=== PATIENT | female | born 1970 | race Two or more races ===

== ENCOUNTER 2016-04-11 07:10 | Outpatient (CLI) | payer SELFPAY | END 2016-04-11 07:11 | disposition home or self-care (01) | DX: E03.9 Hypothyroidism, unspecified (principal) ==

== ENCOUNTER 2016-10-20 08:24 | Outpatient (CLI) | payer OTHER ==
--- NOTE | 2016-10-20 16:27 | MRI Report ---
EXAM: RIGHT KNEE MRI WITHOUT CONTRAST EXAM DATE: 10/20/2016 09:24 AM. CLINICAL HISTORY: Right knee medial collateral ligament sprain. COMPARISON: None. TECHNIQUE: Multiplanar, multisequence T1-weighted and fluid-sensitive sequences of the knee without c ontrast. Other: None. FINDINGS: Bones: No fractures. Periarticular marrow edema is in the inferior portion of the lateral femoral con dyle. There is periarticular marrow and cyst formation of the lateral tibial plateau as well. Minimal tricompartment osteophytes are present. Articular Cartilage: The patellofemoral articular cartilage is intact. There is mild thinning of the medial compartment articular cartilage. Mild thinning and surface irregularity is seen in the lateral compartment articular cartilage. Medial Meniscus: The medial meniscus is intact. Lateral Meniscus: The anterior horn of the lateral meniscus demonstrates a longitudinal tear (series 601, image 20). Cruciate Ligaments: The anterior and posterior cruciate ligaments are intact. Collateral Ligaments: The medial collateral and lateral collateral ligamentous structures are intact. Tendons: The quadriceps, patellar, semimembranosus, and popliteus tendons are unremarkable. Musculature: No edema or fatty atrophy. Other: No effusion. No popliteal cyst. No loose bodies. The medial and lateral retinacula are intact . Prepatellar subcutaneous edema is present. IMPRESSION: 1. Minimal osteoarthritis. 2. Horizontal tear in anterior horn of lateral meniscus. [facility] MUSCULOSKELETAL [facility]IOLOGY SECTION Referring Provider Line: [phone] SITE ID: [id number]
== END 2016-10-20 08:25 | disposition home or self-care (01) ==
LOC: DI 08:24
PROVIDERS: ATTEND Orthopaedic Surgery
DX: S83.281A Other tear of lateral meniscus, current injury, right knee, initial encounter (principal); M17.11 Unilateral primary osteoarthritis, right knee

== ENCOUNTER 2016-11-20 11:50 | Outpatient (CLI) | payer OTHER | END 2016-11-20 11:51 | disposition critical access hospital (66) | LOC: EMS 11:50 | PROVIDERS: ATTEND Surgery | DX: R51 Headache (principal); W01.198A Fall on same level from slipping, tripping and stumbling with subsequent striking against other object, initial encounter; Y93.89 Activity, other specified; Y92.89 Other specified places as the place of occurrence of the external cause; Y99.0 Civilian activity done for income or pay | CPT/HCPCS: A0425; A0429 ==

== ENCOUNTER 2016-11-20 12:15 | Emergency (ER) | payer OTHER ==
--- NOTE | 2016-11-20 14:18 | CT Preliminary Report ---
Exam: CT Chest W/O IMPRESSION: No evidence of acute traumatic injury to the chest. [facility] SITE ID: [id number]
--- NOTE | 2016-11-20 14:20 | CT Report ---
EXAM: CT CHEST EXAM DATE: 11/20/2016 01:46 PM. CLINICAL HISTORY: Fall posterior contusion. COMPARISONS: None. TECHNIQUE: Routine helical CT imaging was performed through the chest. IV contrast: None. Reconstruct ions: Coronal and sagittal. In accordance with CT protocol optimization, one or more of the following dose reduction techniques w ere utilized for this exam: automated exposure control, adjustment of mA and/or KV based on patient s ize, or use of iterative reconstructive technique. FINDINGS: Lungs/Pleura: No nodules, bronchial thickening, consolidation, or edema. Pulmonary vasculature is nor mal. No pericardial or pleural effusion. No pneumothorax. Mediastinum: Normal. No adenopathy or masses. The heart and great vessels are normal. Bones: Unremarkable. Visualized Abdomen: No acute abnormalities are seen. There is hepatic steatosis. There is colonic div erticulosis. Other: None. IMPRESSION: No evidence of acute traumatic injury to the chest. [facility] Referring Provider Line: [phone] SITE ID: [id number]
--- NOTE | 2016-11-20 14:32 | CT Preliminary Report ---
Exam: CT Head W/O IMPRESSION: 1. No definite acute infarct, intracranial hemorrhage, mass, or hydrocephalus. 2. Moderate-sized left frontal scalp hematoma with no definite underlying calvarial fracture. [facility] SITE ID: [id number]
--- NOTE | 2016-11-20 14:34 | CT Report ---
EXAM: CT HEAD EXAM DATE: 11/20/2016 01:46 PM. CLINICAL HISTORY: 46-year-old with head strike presenting with headache and neck pain COMPARISON: None. TECHNIQUE: Multiaxial CT images were obtained from the foramen magnum to the vertex. IV contrast: Non e. Reformats: Coronal. In accordance with CT protocol optimization, one or more of the following dose reduction techniques w ere utilized for this exam: automated exposure control, adjustment of mA and/or KV based on patient s ize, or use of iterative reconstructive technique. FINDINGS: Parenchyma: No intraparenchymal hemorrhage. No evidence of mass, midline shift, or CT findings of inf arction. Varela-white differentiation is distinct. Extraaxial Spaces: Normal for age. No subdural or epidural collections identified. Ventricles: Normal in size and position. Sinuses: Imaged paranasal sinuses, orbits, and mastoids show no significant abnormality. Bones: No evidence of fracture or calvarial defect. Other: Moderate left frontal scalp hematoma.. IMPRESSION: 1. No definite acute infarct, intracranial hemorrhage, mass, or hydrocephalus. 2. Moderate-sized left frontal scalp hematoma with no definite underlying calvarial fracture. [facility] Referring Provider Line: [phone] SITE ID: [id number]
--- NOTE | 2016-11-20 14:36 | CT Preliminary Report ---
Exam: CT Cervical Spine W/O IMPRESSION: 1. Patient is imaged within a c-collar. Straightening of the normal cervical lordosis. 2. No definite acute fracture or traumatic subluxation. [facility] SITE ID: [id number]
--- NOTE | 2016-11-20 14:38 | CT Report ---
EXAM: CT CERVICAL SPINE WITHOUT CONTRAST DATE: 11/20/2016 01:45 PM HISTORY: 46-year-old with fall and head strike presenting with neck pain and headache. COMPARISONS: None. TECHNIQUE: Thin-section axial images were acquired of the cervical spine without contrast. Post-proce ssing: Coronal and sagittal reformats. Other: None. In accordance with CT protocol optimization, one or more of the following dose reduction techniques w ere utilized for this exam: automated exposure control, adjustment of mA and/or KV based on patient s ize, or use of iterative reconstructive technique. FINDINGS: Alignment: Straightening of normal cervical lordosis. No definite spondylolisthesis or scoliotic curv ature. Bones: No fracture or bone lesion. Interspace Levels/Facets: C1-C2: Unremarkable. C2-C3: Unremarkable. C3-C4: Unremarkable. C4-C5: Unremarkable. C5-C6: Unremarkable. C6-C7: Unremarkable. C7-T1: Unremarkable. Musculature: Normal. No fatty atrophy. Other: The paravertebral and prevertebral soft tissues are normal. The lung apices are clear. IMPRESSION: 1. Patient is imaged within a c-collar. Straightening of the normal cervical lordosis. 2. No definite acute fracture or traumatic subluxation. [facility] Referring Provider Line: [phone] SITE ID: [id number]
--- NOTE | 2016-11-20 15:33 | ED Physician Documentation ---
PD HPI Fall - Stated complaint Stated Complaint: Fall - Chief complaint Chief Complaint: General - History obtained from History obtained from: Patient - History of Present Illness Mechanism of injury: Slipped Fall distance: Standing position Where injury occurred: Work Timing - onset: Today Injury(ies) location: Head, Back, Left Uppper Extremity, Left Lower Extremity ( knee) Quality of pain: Pain, Throbbing Associated symptoms: Neck pain, Dyspnea. No: LOC, AMS, Amnesia, Weakness, Paresthesias Symptoms improve with: Rest Worsens with: Movement, Palpation Contributing factors: No: Anticoagulated Similar symptoms before: Has not had sx before Recently seen: Not recently seen - Additional information Additional information: 46-year-old female was at work today with a mop bucket and the mop bucket scooted away on the floor she went to pick it up and she slipped on water and fell forward hitting her face into the wall and arching her back backwards. She has a lot of pain in her left upper back and she has pain whenever she moves her arms. She has pain when she takes a deep breath and she has some pain in her neck. She does not have any numbness or tingling. She has some pain in her left knee as well. She is able to bear weight.History is taken with the assistance of a [employer] retailer sales consultant on [employer]. Review of Systems Constitutional: denies: Fever Eyes: denies: Decreased vision Ears: denies: Ear pain Nose: denies: Congestion Throat: denies: Sore throat Cardiac: denies: Chest pain / pressure, Palpitations Respiratory: reports: Dyspnea. denies: Cough GI: denies: Abdominal Pain, Nausea : denies: Dysuria, Frequency Skin: denies: Rash Musculoskeletal: reports: Neck pain, Back pain. denies: Extremity pain, Joint pain Neurologic: denies: Generalized weakness, Focal weakness, Numbness PD PAST MEDICAL HISTORY - Past Medical History Endocrine/Autoimmune: HyPOthyroidism - Past Surgical History Past Surgical History: Yes - Present Medications Home Medications: Ambulatory Orders Medication Instructions Recorded Confirmed Ferrous Sulfate 2 tab PO DAILY 10/07/14 11/20/16 Levothyroxine Sodium 50 mcg PO DAILY 10/07/14 11/20/16 Ibuprofen 600 mg PO TID #20 tablet 10/08/14 11/20/16 HYDROcod/ACETAM 5/325 [[place] 5/325] 1 - 2 ea PO Q6H PRN #15 tablet 11/20/16 - Allergies Allergies/Adverse Reactions: Allergies Allergy/AdvReac Type Severity Reaction Status Date / Time No Known Drug Allergies Allergy Verified 11/20/16 12:40 - Social History Does the pt smoke?: Yes Smoking Status: Current every day smoker Does the pt drink ETOH?: No Does the pt have substance abuse?: No - Immunizations Immunizations are current?: Yes - POLST Patient has POLST: No PD ED PE NORMAL - Vitals Vital signs reviewed: Yes (hypertensive) - General General: Well developed/nourished, Other (The patient is in a C-collar on a back board and she is wet over her front. She appears to be in pain . ) - HEENT HEENT: PERRL, EOMI, Other (There is a hematoma to the left forehead. ) - Neck Neck: Supple, no meningeal sign, Other (There is some midline point tenderness to the mid cervical spine. ) - Cardiac Cardiac: RRR, No murmur - Respiratory Respiratory: No respiratory distress, Clear bilaterally, Other (There is pain to palpation of the left posterior chest wall above the scapula. There is referred pain to this area with movement of the shoulders. ) - Abdomen Abdomen: Soft, Non tender - Back Back: No CVA TTP, No spinal TTP - Derm Derm: Normal color, Warm and dry, No rash - Extremities Extremities: No deformity, No edema, Other (There is abrasion to both knees and the left is worse than the right. The ligaments are stable ) - Neuro Neuro: No motor deficit, No sensory deficit - Psych Psych: Normal mood, Normal affect Results - Vitals Vitals: Vital Signs - 24 hr 11/20/16 11/20/16 12:27 14:20 Temperature 37.2 C 36.8 C Heart Rate 67 66 Respiratory 24 18 Rate Blood Pressure 150/76 H 126/78 O2 Saturation 98 98 Oxygen O2 Source Room air - Rads (name of study) CT head without Radiology: Prelim report reviewed (Impression: 1. No definite acute infarct, intracranial hemorrhage, mass, or hydrocephalus.2. Moderate-sized left frontal scalp hematoma with no definite acute underlying calvarial fracture.), EMP read indepedently, See rad report CT cervical spine without Radiology: Prelim report reviewed (Impression: 1. The patient is imaged within a c-collar. Straightening of the normal cervical lordosis.2. No definite acute fracture or traumatic subluxation.), EMP read indepedently, See rad report CT chest without Radiology: Prelim report reviewed (Impression: No evidence of acute traumatic injury to the chest.), EMP read indepedently, See rad report PD MEDICAL DECISION MAKING - ED course Complexity details: reviewed old records, reviewed results, re-evaluated patient , considered differential, d/w patient ED course: 46-year-old female with a slip on water at work with a head contusion cervicals strain and a strain of the thoracic chest wall posteriorly. She is in significant pain on arrival to the emergency department she is eventually administered Toradol with some improvement. Departure - Departure Disposition: 01 Home, Self Care Clinical Impression: Closed head injury Qualifiers: Encounter type: initial encounter Qualified Code(s): S09.90XA - Unspecified injury of head, initial encounter Chest wall muscle strain Qualifiers: Encounter type: initial encounter Qualified Code(s): S29.011A - Strain of muscle and tendon of front wall of thorax, initial encounter Cervical strain, acute Qualifiers: Encounter type: initial encounter Qualified Code(s): S16.1XXA - Strain of muscle, fascia and tendon at neck level, initial encounter Condition: Stable Instructions: ED Head Injury Closed, ED Sprain Knee, ED Sprain Strain Neck, ED Sprain Thoracic Spine Follow-Up: [facility] [Provider Group] Prescriptions: HYDROcod/ACETAM 5/325 [[place] 5/325] 1 - 2 ea PO Q6H PRN #15 tablet PRN Reason: Pain Print Language: Bulgarian Forms: Activity restrictions
[2016-11-20] MEDS ORDERED: KETOROLAC 60 MG/2 ML VIAL IM STA (15:54)
[2016-11-20] MEDS ORDERED: KETOROLAC 60 MG/2 ML VIAL ONE (16:02)
[2016-11-20 16:58] VITALS: BP 138/82
== END 2016-11-20 16:55 | disposition home or self-care (01) ==
LOC: EDUNIT# → ED 12:15
DX: S09.90XA Unspecified injury of head, initial encounter (principal); S29.011A Strain of muscle and tendon of front wall of thorax, initial encounter; S16.1XXA Strain of muscle, fascia and tendon at neck level, initial encounter; S00.93XA Contusion of unspecified part of head, initial encounter; W01.0XXA Fall on same level from slipping, tripping and stumbling without subsequent striking against object, initial encounter; Y93.89 Activity, other specified; Y99.0 Civilian activity done for income or pay; F17.200 Nicotine dependence, unspecified, uncomplicated
CPT/HCPCS: 1040M; 70450; 71250; 72125; 96372; 99283; 99284

== ENCOUNTER → 2017-02-18 | Outpatient (CLI) | payer SELFPAY ==
[2017-02-18 12:23] LABS: BUN - BLOOD UREA NITROGEN 6 mg/dL (6-20); CALCIUM 8.3 mg/dL (8.5-10.3); CARBON DIOXIDE - CO2 21 mmol/L (21-32); CHLORIDE 105 mmol/L (101-111); CREATININE 0.3 mg/dL (0.4-1.0); GFR - MDRD 239 (>89); GLUCOSE 163 mg/dL (70-100); POTASSIUM 3.7 mmol/L (3.5-5.0); SODIUM 136 mmol/L (135-145)
[2017-02-18 12:25] LABS: BASOPHILS % (AUTO) 0.4 %; EOSINOPHILS # (AUTO) 0.3 10^3/uL (0.0-0.7); EOSINOPHILS % (AUTO) 3.6 %; LYMPHOCYTES # (AUTO) 2.4 10^3/uL (1.5-3.5); LYMPHOCYTES % (AUTO) 28.5 %; MEAN CORPUSCULAR HGB CONC 34.3 g/dL (32.0-36.0); MEAN CORPUSCULAR VOLUME 84.6 fL (81.0-99.0); MEAN PLATELET VOLUME 9.4 fL (7.9-10.8); MONOCYTES # (AUTO) 0.6 10^3/uL (0.0-1.0); MONOCYTES % (AUTO) 7.4 %; NEUTROPHILS % (AUTO) 60.1 %; NUCLEATED RED BLOOD CELLS AUTO 0.1 /100WBC; RED BLOOD COUNT 4.49 10^6/uL (4.20-5.40); RED CELL DISTRIBUTION WIDTH 13.7 % (12.0-15.0); UNCORRECTED WHITE BLOOD COUNT 8.4 x10^3/uL; WHITE BLOOD COUNT 8.4 x10^3/uL (4.8-10.8)
== END ==
LOC: LAB.N 08:00
PROVIDERS: ATTEND Physician Assistant Medical
DX: N92.0 Excessive and frequent menstruation with regular cycle (principal); E03.9 Hypothyroidism, unspecified; D64.9 Anemia, unspecified
CPT/HCPCS: 36415; 80048; 84443; 85025

== ENCOUNTER 2017-03-18 14:23 | Outpatient (CLI) | payer SELFPAY ==
[2017-03-18 19:17] LABS: HEMOGLOBIN A1C 0.84 g/dL
== END 2017-03-18 14:24 | disposition home or self-care (01) ==
LOC: LAB.N 14:23
PROVIDERS: ATTEND Physician Assistant Medical
DX: R73.9 Hyperglycemia, unspecified (principal)
CPT/HCPCS: 36415; 83036

== ENCOUNTER 2017-08-27 08:00 | Outpatient (CLI) | payer SELFPAY ==
[2017-08-27 19:18] LABS: HB2 TOTAL 16.2 g/dL; HEMOGLOBIN A1C 0.9 g/dL; HEMOGLOBIN A1C % 7.2 % (4.6-6.2)
== END 2017-08-27 08:01 | disposition home or self-care (01) ==
LOC: LAB.N 08:00
PROVIDERS: ATTEND Nurse Practitioner Gerontology
DX: E11.9 Type 2 diabetes mellitus without complications (principal)
CPT/HCPCS: 36415; 83036

== ENCOUNTER 2017-12-28 08:00 | Outpatient (CLI) | payer SELFPAY ==
[2017-12-28 19:43] LABS: HB2 TOTAL 14.5 g/dL; HEMOGLOBIN A1C % 8.5 % (4.6-6.2)
== END 2017-12-28 08:01 | disposition home or self-care (01) ==
LOC: LAB.N 08:00
PROVIDERS: ATTEND Nurse Practitioner Gerontology
DX: E11.9 Type 2 diabetes mellitus without complications (principal)
CPT/HCPCS: 36415; 83036

== ENCOUNTER 2018-04-16 11:42 | Outpatient (CLI) | payer SELFPAY ==
[2018-04-16 19:45] LABS: HB2 TOTAL 13.1 g/dL; HEMOGLOBIN A1C 0.7 g/dL
== END 2018-04-16 23:59 | disposition home or self-care (01) ==
LOC: LAB.N 11:42
PROVIDERS: ATTEND Physician Assistant Medical
DX: E11.9 Type 2 diabetes mellitus without complications (principal)
CPT/HCPCS: 36415; 83036

== ENCOUNTER 2018-07-16 08:00 | Outpatient (CLI) | payer SELFPAY ==
[2018-07-16 14:04] LABS: HB2 TOTAL 14.4 g/dL; HEMOGLOBIN A1C 0.81 g/dL; HEMOGLOBIN A1C % 7.3 % (4.6-6.2)
== END 2018-07-16 23:59 ==
LOC: LAB.N 08:00
PROVIDERS: ATTEND Physician Assistant Medical
DX: E11.9 Type 2 diabetes mellitus without complications (principal)
CPT/HCPCS: 36415; 83036

== ENCOUNTER 2018-10-15 09:50 | Outpatient (CLI) | payer SELFPAY ==
[2018-10-15 13:12] LABS: HB2 TOTAL 14.2 g/dL; HEMOGLOBIN A1C 0.64 g/dL; HEMOGLOBIN A1C % 6.3 % (4.6-6.2)
== END 2018-10-15 23:59 | disposition home or self-care (01) ==
LOC: LAB.N 09:50
PROVIDERS: ATTEND Nurse Practitioner Gerontology
DX: E11.9 Type 2 diabetes mellitus without complications (principal)
CPT/HCPCS: 36415; 83036

== ENCOUNTER 2019-01-14 11:59 | Outpatient (CLI) | payer SELFPAY ==
[2019-01-14 18:40] LABS: BASOPHILS # (AUTO) 0.1 10^3/uL (0.0-0.1); BASOPHILS % (AUTO) 0.8 %; EOSINOPHILS # (AUTO) 0.4 10^3/uL (0.0-0.7); HGB - HEMOGLOBIN 12.8 g/dL (12.0-16.0); LYMPHOCYTES # (AUTO) 2.2 10^3/uL (1.5-3.5); LYMPHOCYTES % (AUTO) 25.6 %; MEAN CORPUSCULAR HEMOGLOBIN 25.5 pg (27.0-31.0); MEAN CORPUSCULAR HGB CONC 30.3 g/dL (32.0-36.0); MEAN CORPUSCULAR VOLUME 84.2 fL (81.0-99.0); MEAN PLATELET VOLUME 10.8 fL (7.9-10.8); MONOCYTES # (AUTO) 0.6 10^3/uL (0.0-1.0); MONOCYTES % (AUTO) 6.9 %; NEUTROPHILS # (AUTO) 5.4 10^3/uL (1.5-6.6); NEUTROPHILS % (AUTO) 62.1 %; PLT - PLATELET COUNT 286 10^3/uL (130-450); RED BLOOD COUNT 5.01 10^6/uL (4.20-5.40); RED CELL DISTRIBUTION WIDTH 16.5 % (12.0-15.0); WHITE BLOOD COUNT 8.7 x10^3/uL (4.8-10.8)
[2019-01-14 19:05] LABS: HEMOGLOBIN A1C 0.55 g/dL; HEMOGLOBIN A1C % 5.7 % (4.6-6.2)
[2019-01-14 19:08] LABS: BUN - BLOOD UREA NITROGEN 7 mg/dL (6-20); CALCIUM 8.5 mg/dL (8.5-10.3); CARBON DIOXIDE - CO2 26 mmol/L (21-32); CHLORIDE 108 mmol/L (101-111); CHOL/HDL RATIO 3.6 (<4.4); CHOLESTEROL 140 mg/dL; CREATININE 0.4 mg/dL (0.4-1.0); GFR - MDRD 170 (>89); GLUCOSE 105 mg/dL (70-100); HDL CHOLESTEROL 39 mg/dL; LDL CHOLESTEROL,CALCULATED 67 mg/dL; LDL/HDL RATIO 1.7 (<4.4); SODIUM 140 mmol/L (135-145); VLDL CHOLESTEROL 34 mg/dL
== END 2019-01-14 23:59 | disposition home or self-care (01) ==
LOC: LAB.N 11:59
PROVIDERS: ATTEND Physician Assistant Medical
DX: E11.9 Type 2 diabetes mellitus without complications (principal); E03.9 Hypothyroidism, unspecified
CPT/HCPCS: 36415; 80048; 80061; 83036; 83721; 84443; 85025

== ENCOUNTER 2019-04-08 13:27 | Outpatient (CLI) | payer SELFPAY ==
--- NOTE | 2019-04-08 14:35 | XRAY Report ---
Reason: NECK PAIN Procedure Date: 04/08/2019 Accession Number: [id number] / [id number] Procedure: XRN - Cervical Spine 2 View CPT Code: Final Report FULL RESULT: EXAM: CERVICAL SPINE RADIOGRAPHY EXAM DATE: 04/08/2019 02:07 PM. CLINICAL HISTORY: NECK PAIN. COMPARISONS: CERVICAL SPINE 2 VIEW 10/07/2014 11:10 PM. TECHNIQUE: 3 views. FINDINGS: Alignment: Straightening of normal cervical lordosis No spondylolisthesis or scoliosis. Bones: The cervical vertebral bodies and posterior elements are well visualized from the skull base through C7-T1. No fractures or bone lesions. Disks: C4-C5 osteophyte, disk space narrowing. C6-C7 osteophyte Facets: No degenerative disease. Soft Tissues: Normal. No prevertebral soft tissue swelling. The visualized lung apices are clear. IMPRESSION: Mild degenerative changes [facility]
== END 2019-04-08 13:28 | disposition home or self-care (01) ==
LOC: DI.N 13:27
PROVIDERS: ATTEND Physician Assistant Medical
DX: M50.321 Other cervical disc degeneration at C4-C5 level (principal)
CPT/HCPCS: 72040

== ENCOUNTER 2019-05-04 13:17 | Outpatient (CLI) | payer SELFPAY ==
--- NOTE | 2019-05-04 20:49 | CT Report ---
Reason: HEADACHE, NECK PAIN Procedure Date: 05/04/2019 Accession Number: [id number] / [id number] Procedure: CT - HEAD WO CPT Code: Final Report FULL RESULT: EXAM: CT HEAD EXAM DATE: 05/04/2019 01:51 PM. CLINICAL HISTORY: 48-year-old presenting with one-month history of headache and neck pain. Evaluate for intracranial pathology. COMPARISON: HEAD W/O 11/20/2016 1:27 PM. TECHNIQUE: Multiaxial CT images were obtained from the foramen magnum to the vertex. Reformats: Sagittal and coronal. IV contrast: None. In accordance with CT protocol optimization, one or more of the following dose reduction techniques were utilized for this exam: automated exposure control, adjustment of mA and/or KV based on patient size, or use of iterative reconstructive technique. FINDINGS: Parenchyma: No intraparenchymal hemorrhage. No evidence of mass, midline shift, or CT findings of infarction. Varela-white differentiation is distinct. Extraaxial Spaces: Normal for age. No subdural or epidural collections identified. Ventricles: Normal in size and position. Sinuses and Orbits: Imaged paranasal sinuses, orbits, and mastoids show no significant abnormality. Bones: No evidence of fracture or calvarial defect. Other: None. IMPRESSION: 1. No definite acute intracranial pathology seen; specifically, no acute infarct, acute intracranial hemorrhage, mass, hydrocephalus, or midline shift. [facility]
== END 2019-05-04 13:18 | disposition home or self-care (01) ==
LOC: DI 13:17
PROVIDERS: ATTEND Physician Assistant Medical
DX: R51 Headache (principal); M54.2 Cervicalgia
CPT/HCPCS: 70450

== ENCOUNTER 2019-05-30 09:45 | Outpatient (CLI) | payer SELFPAY ==
[2019-05-30 13:02] LABS: HB2 TOTAL 9.9 g/dL; HEMOGLOBIN A1C 0.63 g/dL
== END 2019-05-30 23:59 | disposition home or self-care (01) ==
LOC: LAB.N 09:45
PROVIDERS: ATTEND Physician Assistant Medical
DX: E11.9 Type 2 diabetes mellitus without complications (principal)
CPT/HCPCS: 36415; 83036

== ENCOUNTER 2019-08-25 08:00 | Outpatient (CLI) | payer SELFPAY ==
[2019-08-26 17:52] LABS: CALCIUM 8.6 mg/dL (8.5-10.3); CREATININE 0.4 mg/dL (0.4-1.0)
[2019-08-26 18:01] LABS: HEMOGLOBIN A1C 0.44 g/dL; HEMOGLOBIN A1C % 6.2 % (4.6-6.2)
== END 2019-08-25 23:59 | disposition home or self-care (01) ==
LOC: LAB.WCP 08:00
PROVIDERS: ATTEND Nurse Practitioner Family
DX: E11.9 Type 2 diabetes mellitus without complications (principal)
CPT/HCPCS: 36415; 80048; 83036

== ENCOUNTER 2020-03-16 14:30 | Outpatient (CLI) | payer SELFPAY ==
[2020-03-16 18:33] LABS: CALCIUM 8.8 mg/dL (8.5-10.3); CREATININE 0.6 mg/dL (0.4-1.0)
== END 2020-03-16 23:59 | disposition home or self-care (01) ==
LOC: LAB.WCP 14:30
PROVIDERS: ATTEND Nurse Practitioner Family
DX: E11.9 Type 2 diabetes mellitus without complications (principal)
CPT/HCPCS: 36415; 80048; 81599; 83036

== ENCOUNTER 2021-03-02 01:24 | Emergency (ER) | payer SELFPAY ==
[2021-03-02] MEDS ORDERED: ONDANSETRON 4 MG/2 ML VIAL IVP STA (01:56)
[2021-03-02] MEDS ORDERED: SODIUM CHLORIDE 0.9% 500 ML IV STA (01:56)
[2021-03-02] MEDS ORDERED: KETOROLAC 15 MG/ML VIAL IVP STA (01:56)
--- NOTE | 2021-03-02 01:59 | ED Physician Documentation ---
History of Present Illness - Stated complaint Stated Complaint: RLQ PX - Chief complaint Chief Complaint: Abd Pain - History obtained from History obtained from: Patient, Family (son) - Additonal information Additional information: 50yF with psh hysterectomy, pmh constipation p/w RUQ pain radiating to R flank and back, gradual onset since 12:30pm yesterday, constant, a/w nausea but no vomiting. normal BM yesterday. denies fevers. patient has increased urinary frequency but no dysuria or hematuria. Patient is bangladeshi speaking and prefers that her son act as germ drier. Fire [employer] was offered on initial history and declined. Review of Systems Ten Systems: 10 systems reviewed and negative Constitutional: denies: Fever, Chills Cardiac: denies: Chest pain / pressure Respiratory: denies: Dyspnea GI: reports: Abdominal Pain, Nausea, Constipation. denies: Vomiting, Diarrhea : reports: Frequency. denies: Dysuria PD PAST MEDICAL HISTORY - Past Medical History Past Medical History: Yes Endocrine/Autoimmune: HyPOthyroidism - Past Surgical History Past Surgical History: Yes - Present Medications Home Medications: Ambulatory Orders Medication Instructions Recorded Confirmed Sennosides/Docusate Sodium 1 each PO QDAC #30 tablet 03/02/21 [Senna-Docusate Sodium Tablet] metFORMIN [Glucophage] 500 mg PO BID 03/02/21 03/02/21 polyethylene glycoL 3350 [Miralax] 17 gm PO DAILY 30 Days #238 gm 03/02/21 - Allergies Allergies/Adverse Reactions: Allergies Allergy/AdvReac Type Severity Reaction Status Date / Time No Known Drug Allergies Allergy Verified 03/02/21 01:31 - Social History Does the pt smoke?: Yes Smoking Status: Current every day smoker Does the pt drink ETOH?: No Does the pt have substance abuse?: No - Immunizations Immunizations are current?: Yes - POLST Patient has POLST: No PD ED PE NORMAL - Vitals Vital signs reviewed: Yes - General General: Alert and oriented X 3, No acute distress, Well developed/nourished - HEENT HEENT: Atraumatic, PERRL, EOMI - Neck Neck: Supple, no meningeal sign - Cardiac Cardiac: RRR - Respiratory Respiratory: No respiratory distress, Clear bilaterally - Abdomen Abdomen: Other (RUQ discomfort with palpation. negative jain sign. ntnd. ) - Back Back: No CVA TTP - Derm Derm: Normal color, Warm and dry - Extremities Extremities: No deformity - Neuro Neuro: Alert and oriented X 3 - Psych Psych: Normal mood, Normal affect Results - Vitals Vitals: Vital Signs - 24 hr 03/02/21 03/02/21 03/02/21 01:27 01:31 02:22 Temperature 36.8 C Heart Rate 57 L 53 L Respiratory 18 16 Rate Blood Pressure 146/78 H 121/51 L O2 Saturation 98 99 03/02/21 03/02/21 03/02/21 02:47 04:00 06:08 Temperature 36.1 C L Heart Rate 56 L 52 L 53 L Respiratory 16 16 18 Rate Blood Pressure 126/62 120/59 L 121/44 L O2 Saturation 99 98 96 Oxygen O2 Source Room air - Labs Labs: Laboratory Tests 03/02/21 03/02/21 03/02/21 01:33 01:45 01:45 WBC 9.9 RBC 5.17 Hgb 15.2 Hct 46.0 MCV 89.0 MCH 29.4 MCHC 33.0 RDW 13.1 Plt Count 240 MPV 11.2 H Neut # (Auto) 5.8 Lymph # (Auto) 2.7 Dawson # (Auto) 0.8 Eos # (Auto) 0.4 Baso # (Auto) 0.1 Absolute Nucleated RBC 0.00 Nucleated RBC % 0.0 Sodium 136 Potassium 3.6 Chloride 103 Carbon Dioxide 25 Anion Gap 8.0 BUN 14 Creatinine 0.4 Estimated GFR (MDRD) 169 Glucose 140 H Calcium 9.4 Total Bilirubin 0.6 AST 28 ALT 49 Alkaline Phosphatase 64 Total Protein 7.9 Albumin 4.3 Globulin 3.6 Albumin/Globulin Ratio 1.2 Lipase 35 Urine Color YELLOW Urine Clarity CLEAR Urine pH 5.5 Ur Specific [place] 1.025 Urine Protein NEGATIVE Urine Glucose (UA) NEGATIVE Urine Ketones NEGATIVE Urine Occult Blood MODERATE H Urine Nitrite NEGATIVE Urine Bilirubin NEGATIVE Urine Urobilinogen 0.2 (NORMAL) Ur Leukocyte Esterase NEGATIVE Urine RBC 6-10 H Urine WBC 0-3 Ur Squamous Epith Cells RARE Squamous Urine Bacteria None Seen Ur Microscopic Review INDICATED Urine Culture Comments NOT INDICATED Procedures - General procedure General procedure: Bedside [id number] ultrasound of the gallbladder performed with no evidence of gallstones. PD MEDICAL DECISION MAKING - ED course ED course: 50yF p/w RUQ pain that she states she has had before, but never to this extent. unsure of cause. symptomatic care ordered. CT and labs pending. CT with adenoma (discussed with son) and constipation in R colon around the area of discomfort. Bedside POCUS of gallbladder shows no evidence of stones. germ drier ipad used and patient states she has had pain around the right abdominal area for about 3 years and has had ongoing constipation for years as well. advised her to resume regimen of senna/docusate and miralax and advised healthy eating habits. patient to f/u with her pmd for referral to GI. strict return precautions discussed. Departure - Departure Disposition: Home, Self Care Clinical Impression: Constipation, Adrenal adenoma Condition: Stable Instructions: Abdominal Pain, ED Constipation Follow-Up: RADHA CRUZ MD [Physician No Access] - Prescriptions: polyethylene glycoL 3350 [Miralax] 17 gm PO DAILY 30 Days #238 gm Sennosides/Docusate Sodium [Senna-Docusate Sodium Tablet] 1 each PO QDAC #30 tablet Comments: You were seen in the emergency department for abdominal pain and had a CT done that showed an adrenal adenoma (a benign mass) on the kidney. It also showed moderate constipation. Please follow up with your primary doctor, try to eat a healthy diet, and take the medications for constipation as prescribed. return to the emergency department if you have new or worsening symptoms or other concerns.
[2021-03-02 02:09] LABS: BASOPHILS # (AUTO) 0.1 10^3/uL (0.0-0.1); BASOPHILS % (AUTO) 0.7 %; EOSINOPHILS # (AUTO) 0.4 10^3/uL (0.0-0.7); EOSINOPHILS % (AUTO) 4.5 %; HGB - HEMOGLOBIN 15.2 g/dL (12.0-16.0); LYMPHOCYTES # (AUTO) 2.7 10^3/uL (1.5-3.5); LYMPHOCYTES % (AUTO) 27.3 %; MEAN CORPUSCULAR HEMOGLOBIN 29.4 pg (27.0-31.0); MEAN PLATELET VOLUME 11.2 fL (7.9-10.8); MONOCYTES # (AUTO) 0.8 10^3/uL (0.0-1.0); NEUTROPHILS # (AUTO) 5.8 10^3/uL (1.5-6.6); NEUTROPHILS % (AUTO) 59.2 %; PLT - PLATELET COUNT 240 10^3/uL (130-450); RED BLOOD COUNT 5.17 10^6/uL (4.20-5.40); RED CELL DISTRIBUTION WIDTH 13.1 % (12.0-15.0); WHITE BLOOD COUNT 9.9 x10^3/uL (4.8-10.8)
[2021-03-02 02:10] LABS: BILIRUBIN,URINE NEGATIVE (NEGATIVE); GLUCOSE, URINE (UA) NEGATIVE (NEGATIVE); KETONES,URINE (UA) NEGATIVE (NEGATIVE); LEUKOCYTE ESTERASE, URINE NEGATIVE (NEGATIVE); NITRITE,URINE NEGATIVE (NEGATIVE); OCCULT BLOOD,URINE MODERATE (NEGATIVE); PH,URINE 5.5 PH (5.0-7.5); PROTEIN,URINE NEGATIVE (NEGATIVE); UROBILINOGEN,URINE 0.2 (NORMAL) E.U./dL (NORMAL)
[2021-03-02 02:12] LABS: CLARITY,URINE CLEAR (CLEAR)
[2021-03-02 02:20] LABS: ALBUMIN 4.3 g/dL (3.2-5.5); ALBUMIN/GLOBULIN RATIO 1.2 (1.0-2.2); BILIRUBIN,TOTAL 0.6 mg/dL (0.2-1.0); CALCIUM 9.4 mg/dL (8.5-10.3); CREATININE 0.4 mg/dL (0.4-1.0); POTASSIUM 3.6 mmol/L (3.5-5.0); TOTAL PROTEIN 7.9 g/dL (6.7-8.2)
[2021-03-02 02:22] LABS: WBC,URINE 0-3 /HPF (0-5)
[2021-03-02 02:23] LABS: BACTERIA,URINE None Seen /HPF (None Seen); SQUAMOUS EPITHELIAL CELL,UR RARE Squamous (<= Few)
[2021-03-02] MEDS ORDERED: MORPHINE 2 MG/ML CARPUJECT IVP STA (02:41)
[2021-03-02] MEDS ORDERED: METOCLOPRAMIDE 10 MG/2 ML VIAL IVP STA (02:41)
[2021-03-02] MEDS ORDERED: IOVERSOL 320 100 ML VIAL IVP ONE ×2 (03:48→04:27)
[2021-03-02 06:11] VITALS: BP 121/44
--- NOTE | 2021-03-02 08:51 | CT Report ---
PROCEDURE: Abdomen/Pelvis W INDICATIONS: RUQ pain radiating to flank CONTRAST: IV CONTRAST: Optiray 320 ml: 100 PO CONTRAST: *NO PO CONTRAST TECHNIQUE: After the administration of intravenous contrast, 5 mm thick sections acquired from the diaphragms to the symphysis. 5 mm thick coronal and sagittal reformats were acquired. For radiation dose reducti on, the following was used: automated exposure control, adjustment of mA and/or kV according to sheldon ent size. COMPARISON: Chest CT 11/20/2016. FINDINGS: Image quality: Excellent. ABDOMEN: Lung bases: A small pulmonary nodule in the left lingula measuring up to 0.4 cm is stable size compar ed to the prior study. There is mild dependent atelectasis bilaterally. Heart size is normal. Solid organs: There is diffuse hypoattenuation of the liver consistent with fatty infiltration. Gallb ladder appears within normal limits without calcified gallstones. Biliary system is non dilated. The spleen is normal in size. Pancreas enhances normally without peripancreatic fat stranding or fluid c ollections. There is a small focus of fat density within the body of the pancreas measuring up to 0.5 cm likely representing focal fatty infiltration. There is an indeterminate left adrenal nodule measu ring up to 1.8 cm. No adrenal nodules. Kidneys demonstrate no hydronephrosis. There is a simple appe aring right renal cyst measuring up to 1.5 cm. Peritoneum and bowel: Bowel loops demonstrate normal wall thickness and caliber. The appendix is nor mal in appearance. There is colonic diverticulosis without acute diverticulitis. Mild colonic distent ion within the ascending colon may reflect constipation. No free fluid or air. Nodes and vessels: No retroperitoneal or mesenteric adenopathy by size criteria. Aorta and inferior vena cava are normal in size. Miscellaneous: No ventral hernias. PELVIS: Genitourinary: Bladder wall thickness is normal. Miscellaneous: No inguinal hernias or adenopathy. Bones: No suspicious bony lesions. No vertebral body compression fractures. IMPRESSION: 1. Mild colonic distention in the descending colon may reflect constipation. 2. Hepatic steatosis. 3. Small indeterminate left adrenal nodule. This appears similar in size and demonstrated attenuation values consistent with a probable lipid rich adenoma on the prior noncontrast CT. 4. No evidence of appendicitis. 5. Colonic diverticulosis without acute diverticulitis. Reviewed by: Remi Arreola MD on 03/02/2021 7:50 AM [facility] Approved by: Remi Arreola MD on 03/02/2021 7:50 AM [facility] Station ID: [id number]
== END 2021-03-02 06:53 | disposition home or self-care (01) ==
LOC: ED 01:24
DX: K59.00 Constipation, unspecified (principal); R11.0 Nausea; D35.02 Benign neoplasm of left adrenal gland; R35.0 Frequency of micturition; F17.200 Nicotine dependence, unspecified, uncomplicated
CPT/HCPCS: 36415; 74177; 80053; 81001; 83690; 85025; 96374; 96375; 99282; 99284; Q9967; 81003; 87086